=== PATIENT | male | born 1935 | race Caucasian/White ===

== ENCOUNTER 2020-02-29 05:35 | Outpatient (CLI) | payer MEDICARE ==
[~2020-02-29] VITALS: Ht 175.3 cm; Wt 63.2 kg
[2020-02-29 08:14] VITALS: BP 159/87
[2020-02-29 08:57] LABS: BASOPHILS # (AUTO) 0.1 10^3/uL (0.0-0.1); BASOPHILS % (AUTO) 1 % (0-10); EOSINOPHILS # (AUTO) 0.3 10^3/uL (0.0-0.3); EOSINOPHILS % (AUTO) 3 % (0-10); HEMATOCRIT 46 % (40-54); HEMOGLOBIN 15.1 G/DL (13.3-17.7); LYMPHOCYTES # (AUTO) 1.2 X 10^3 (1.0-4.0); LYMPHOCYTES % (AUTO) 11 % (12-44); MEAN CORPUSCULAR HEMOGLOBIN 30 PG (25-34); MEAN CORPUSCULAR HGB CONC 33 G/DL (32-36); MEAN CORPUSCULAR VOLUME 91 FL (80-99); MONOCYTES # (AUTO) 0.9 X 10^3 (0.0-1.0); MONOCYTES % (AUTO) 8 % (0-12); NEUTROPHILS # (AUTO) 8.2 X 10^3 (1.8-7.8); NEUTROPHILS % (AUTO) 77 % (42-75); PLATELET COUNT 335 10^3/uL (130-400); RED CELL DISTRIBUTION WIDTH 15.2 % (10.0-14.5); WHITE BLOOD COUNT 10.7 10^3/uL (4.3-11.0)
[2020-02-29 09:21] LABS: BUN/CREATININE RATIO 13; CALCIUM 9.3 MG/DL (8.5-10.1); CARBON DIOXIDE 22 MMOL/L (21-32); CHLORIDE 106 MMOL/L (98-107); CREATININE SERUM 0.93 MG/DL (0.60-1.30); GFR ESTIMATED > 60; GLUCOSE 91 MG/DL (70-105); POTASSIUM 4.3 MMOL/L (3.6-5.0); SODIUM 139 MMOL/L (135-145)
[2020-02-29] MEDS ORDERED: SIMV40TA25 PO (12:24)
[2020-02-29] MEDS ORDERED: CLOP75TA28 PO (12:24)
[2020-02-29] MEDS ORDERED: OMEG100032 PO (12:24)
[2020-02-29] MEDS ORDERED: MTP100TCR PO (12:24)
[2020-02-29] MEDS ORDERED: MOME13HF4 IH (12:24)
[2020-02-29] MEDS ORDERED: AMLO10TA7 PO (12:24)
[2020-02-29] MEDS ORDERED: IPRA4AER IH (12:24)
== END 2020-02-29 12:26 | disposition home or self-care (01) ==
LOC: PREOP 05:35
PROVIDERS: ATTEND Otolaryngology Otolaryngology/Facial Plastic Surgery
DX: Z01.812 Encounter for preprocedural laboratory examination (principal); Z01.810 Encounter for preprocedural cardiovascular examination; J32.8 Other chronic sinusitis; Z20.828 Contact with and (suspected) exposure to other viral communicable diseases
CPT/HCPCS: 80048; 85025; 87081; 93005; U0002; 36415; 87635

== ENCOUNTER 2020-03-02 07:02 | Day surgery (SDC) | payer MEDICARE ==
[2020-03-02] VITALS (11 sets, daily range): BP systolic 128–173; BP diastolic 60–104
[~2020-03-02] VITALS: Ht 175.3 cm; Wt 63.2 kg
[~2020-03-02 07:02] MED LIST: AMLO10TA7 PO; CLOP75TA28 PO; IPRA4AER IH; MOME13HF4 IH; MTP100TCR PO; OMEG100032 PO; SIMV40TA25 PO
[2020-03-02] MEDS ORDERED: LACTATED RINGERS 1,000 ML IV PRN (07:15)
[2020-03-02] MEDS ORDERED: ROCURONIUM 10 MG/ML 5 ML SYRINGE IV ONE (08:14)
[2020-03-02] MEDS ORDERED: ONDANSETRON 4 MG/2 ML (SDV) Z0FRAN ONE (08:14)
[2020-03-02] MEDS ORDERED: LIDOCAINE PF 2% 5 ML (XYLOCAINE) VIAL ONE (08:14)
[2020-03-02] MEDS ORDERED: proPOfol 200 MG/20 ML (DIPRIVAN) VIAL IV ONE (08:14)
[2020-03-02] MEDS ORDERED: MIDAZOLAM 2 MG/2 ML (VERSED) VIAL ONE (08:15)
[2020-03-02] MEDS ORDERED: fentaNYL INJECTION 100 MCG/2 ML AMP ONE (08:15)
[2020-03-02] MEDS ORDERED: NEOSTIGMINE 3 MG/3 ML VIAL ONE (08:16)
[2020-03-02] MEDS ORDERED: GLYCOPYRROLATE 0.2 MG/ML (ROBINUL) 2 ML VIAL ONE (08:16)
[2020-03-02] MEDS ORDERED: LIDOCAINE/EPI 1%-1:100,000 (XYLOCAINE) 20ML ONE (08:21)
[2020-03-02] MEDS ORDERED: LIDOCAINE/EPI 1%-1:100,000 (XYLOCAINE) 20ML INJ ONE (09:00)
[2020-03-02] MEDS ORDERED: SUCCINYLCHOLINE INJ 100 MG/5 ML SYR ONE (09:26)
[2020-03-02] MEDS ORDERED: SEVOFLURANE (ULTANE) 15 ML INHAL SOLN ONE (09:29)
[2020-03-02] MEDS ORDERED: PROMETHAZINE INJ 25 MG/ML (PHENERGAN) AMP IVP ONE (10:00)
[2020-03-02] MEDS ORDERED: morphine INJ 10 MG/ML 1ML (SYR OR VIAL) IVP ONE (10:00)
[2020-03-02] MEDS ORDERED: ONDANSETRON 4 MG/2 ML (SDV) Z0FRAN IVP PRN (10:00)
[2020-03-02] MEDS ORDERED: HYDR-3812 PO (11:27)
--- NOTE | 2020-03-02 11:33 | Anesthesia-General Post-Op ---
General Patient Condition Mental Status/LOC: Same as Preop Cardiovascular: Satisfactory Nausea/Vomiting: Absent Respiratory: Satisfactory Pain: Controlled Complications: Absent Post Op Complications Complications None Follow Up Care/Instructions Patient Instructions None needed. Anesthesia/Patient Condition Patient Condition Patient is doing well, no complaints, stable vital signs, no apparent adverse anesthesia problems. No complications reported per nursing. TYLER BLAKE CRNA Mar 02, 2020 11:33
== END 2020-03-02 11:52 | disposition home or self-care (01) ==
LOC: SDC 07:02
PROVIDERS: ATTEND Otolaryngology Otolaryngology/Facial Plastic Surgery
DX: C12 Malignant neoplasm of pyriform sinus (principal); J32.9 Chronic sinusitis, unspecified; I25.10 Atherosclerotic heart disease of native coronary artery without angina pectoris; J44.9 Chronic obstructive pulmonary disease, unspecified; Z79.899 Other long term (current) drug therapy

== ENCOUNTER → 2020-03-14 | Outpatient (CLI) | payer MEDICARE ==
[~2020-03-14] MED LIST changes: +HYDR-3812 PO
--- NOTE | 2020-03-16 11:16 | Diagnostic Imaging Report ---
PET/CT. 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 EXAMINATION: After intravenous administration of 14.68 mCi of F18-FDG injected into the right antecubital fossa, a series of overlapping emission and transmission PET images was obtained. In the coronal, transaxial and sagittal planes, the area imaged extended from the skull base through the upper thighs. FINDINGS: Height is 5' 9", weight is 140, and blood glucose level is 103. There are no prior PET/CT examinations available for comparison. The CT neck exam performed at [facility] on 02/11/2020 did show a 1.7 x 2.4 x 3.0 cm soft tissue mass in the left pyriform sinus. Reportedly, this mass was biopsied and a diagnosis of squamous cell carcinoma was established. On the CT images of this exam, that mass is again identified and does not appear to have changed significantly in size. This mass is intensely hypermetabolic with a maximum SUV of 14.3. However, there is no other hypermetabolic activity in the neck, supraclavicular region, or chest to suggest metastatic disease. The images through the abdomen do show that there is a 1.7 cm rounded area of increased hypermetabolic activity along the superior pole of the right kidney. This has a maximum SUV of 7.5. This could be related to radiotracer within the collecting system of the right kidney as there is no clear evidence for a mass in this area on the CT images. The possibility that there is a small occult neoplastic mass in this area should still be considered, however. I would recommend that a follow-up CT abdomen exam with and without contrast be performed for further evaluation. There is no other hypermetabolic activity to indicate the presence of malignancy. Physiologic activity is seen in the brain, the kidneys, the bowel, and the bladder. The CT images failed to show any sign of an acute abnormality. There are emphysematous changes involving both lungs and mild chronic fibrosis/atelectasis in each lung base. The prostate gland is enlarged measuring 5.4 cm (normal 5 cm or less). IMPRESSION: 1. The mass in the left pyriform sinus is intensely hypermetabolic, consistent with neoplastic disease. 2. The small area of increased activity in the superior pole of the right kidney is of uncertain etiology. Considerations and recommendations, as above. 3. There is no other hypermetabolic activity to suggest the presence of malignancy. 4. There is no evidence for an acute abnormality. 5. The prostate gland is enlarged. Dictated by: Dictated on workstation # [id number]
== END ==
LOC: RAD 09:58
PROVIDERS: ATTEND Otolaryngology Otolaryngology/Facial Plastic Surgery
DX: C12 Malignant neoplasm of pyriform sinus (principal); N40.0 Benign prostatic hyperplasia without lower urinary tract symptoms
CPT/HCPCS: 78815; A9552

== ENCOUNTER 2020-03-28 05:30 | Outpatient (RCR) | payer MEDICARE ==
[~2020-03-28] VITALS: Ht 175.3 cm; Wt 60.6 kg
[~2020-03-28 05:30] MED LIST changes: +ACHD5005 PO; -HYDR-3812 PO
== END 2020-03-28 09:24 | disposition home or self-care (01) ==
LOC: PREOP 05:30
PROVIDERS: ATTEND Surgery
DX: Z01.818 Encounter for other preprocedural examination (principal); Z01.812 Encounter for preprocedural laboratory examination; C12 Malignant neoplasm of pyriform sinus; Z20.828 Contact with and (suspected) exposure to other viral communicable diseases
CPT/HCPCS: 87635

== ENCOUNTER 2020-03-30 10:00 | Day surgery (SDC) | payer MEDICARE ==
[~2020-03-30] VITALS: Ht 175.3 cm; Wt 60.6 kg
[2020-03-30] VITALS (12 sets, daily range): BP systolic 144–178; BP diastolic 73–98
[2020-03-30] MEDS ORDERED: ceFAZolin 2 GM IV Premixed 50 ML IV ONE (10:15)
[2020-03-30] MEDS ORDERED: LIDOCAINE/EPI 2% 1:100,00 (XYLOCAINE) 20 ML VIAL ONE (10:21)
[2020-03-30] MEDS ORDERED: ROPIVACAINE 5MG/ML 30ML VIAL ONE (10:21)
[2020-03-30] MEDS ORDERED: HEParin (CENTRAL IV FLUSH) 500 UNIT/5 ML SYR ONE (10:22)
[2020-03-30] MEDS ORDERED: BUP/EPI 0.25% 1:200,000 (MARCAINE) 30 ML VIAL ONE (10:22)
[2020-03-30] MEDS ORDERED: 0.9% SODIUM CHLORIDE PF INJ 20 ML VIAL ONE (10:22)
[2020-03-30] MEDS: LACTATED RINGERS 1,000 ML IV PRN ×2 (10:38→14:56)
[2020-03-30] MEDS ORDERED: ROCURONIUM 10 MG/ML 5 ML SYRINGE IV ONE (11:34)
[2020-03-30] MEDS ORDERED: proPOfol 200 MG/20 ML (DIPRIVAN) VIAL IV ONE (11:34)
[2020-03-30] MEDS ORDERED: ONDANSETRON 4 MG/2 ML (SDV) Z0FRAN ONE (11:34)
[2020-03-30] MEDS ORDERED: MIDAZOLAM 2 MG/2 ML (VERSED) VIAL ONE (11:35)
[2020-03-30] MEDS ORDERED: fentaNYL INJECTION 100 MCG/2 ML AMP ONE (11:35)
[2020-03-30] MEDS ORDERED: SEVOFLURANE (ULTANE) 15 ML INHAL SOLN ONE ×9 (11:36→14:29)
[2020-03-30] MEDS ORDERED: GLYCOPYRROLATE 0.2 MG/ML (ROBINUL) 2 ML VIAL ONE ×2 (11:36→14:00)
[2020-03-30] MEDS ORDERED: NEOSTIGMINE 3 MG/3 ML VIAL ONE ×2 (11:36→14:00)
[2020-03-30] MEDS ORDERED: LIDOCAINE PF 2% 5 ML (XYLOCAINE) VIAL ONE (11:37)
--- NOTE | 2020-03-30 11:54 | Progress Note-Pre Operative ---
Pre-Operative Progress Note H&P Reviewed The H&P was reviewed, patient examined and no changes noted. Date Seen by Provider: Mar 30, 2020 Time Seen by Provider: 11:30 Date H&P Reviewed: Mar 30, 2020 Time H&P Reviewed: :30 Pre-Operative Diagnosis: oral pharygeal ca ROBBIE KNOWLES MD Mar 30, 2020 11:54
--- NOTE | 2020-03-30 11:56 | Discharge Inst-Surgical ---
D/C Lap Instructions-ELENI New, Converted, or Re-Newed RX: RX on Chart Follow Up PRN Activity as tolerated Regular Diet Symptoms to Report: Fever over 101 degree F, Nausea/Vomiting Infection Signs and Symptoms to report: Increased redness, Foul odor of wound, Increased drainage Bathing instructions: May shower Operative Area Clean/Dry; Keep incision clean/dry If any problems/questions: Contact your physician or go to Emergency Room ROBBIE KNOWLES MD Mar 30, 2020 11:56
[2020-03-30] MEDS ORDERED: morphine INJ 10 MG/ML 1ML (SYR OR VIAL) IVP PRN ×2 (12:00)
[2020-03-30] MEDS ORDERED: ONDANSETRON 4 MG/2 ML (SDV) Z0FRAN IVP PRN ×2 (12:00→15:00)
[2020-03-30] MEDS ORDERED: ACETAMINOPHEN 325 MG TABLET PO PRN (12:00)
[2020-03-30] MEDS ORDERED: HYDROcodone/APAP 5 MG/325 MG (LORTAB) TAB PO ONE (12:00)
[2020-03-30] MEDS ORDERED: LIDOCAINE JELLY 2% 6 ML SYRINGE ONE (12:22)
[2020-03-30] MEDS ORDERED: PHENYLEPHRINE 0.25% NASAL SPR (NEO-SYNEPHRINE) 15 ML NS ONE (12:39)
--- NOTE | 2020-03-30 13:36 | Progress Note-Post Operative ---
Post-Operative Progess Note Surgeon (s)/Dyed Yarn Operator (s) Surgeon ROBBIE KNOWLES MD Dyed Yarn Operator: hortensia piña [facility] Pre-Operative Diagnosis oral pharygeal ca Post-Operative Diagnosis same Procedure & Operative Findings Date of Procedure 03/30/20 Procedure Performed/Findings left sc groshong implantable catheter under flouroscopy. EGD with PEG Anesthesia Type get Estimated Blood Loss Estimated blood loss (mL): minimal Specimens/Packing Specimens Removed none ROBBIE KNOWLES MD Mar 30, 2020 13:36
--- NOTE | 2020-03-30 14:55 | Anesthesia-General Post-Op ---
General Patient Condition Mental Status/LOC: Same as Preop Cardiovascular: Satisfactory Nausea/Vomiting: Absent Respiratory: Satisfactory Pain: Controlled Complications: Absent Post Op Complications Complications None Follow Up Care/Instructions Patient Instructions None needed. Anesthesia/Patient Condition Patient Condition Patient is doing well, no complaints, stable vital signs, no apparent adverse anesthesia problems. No complications reported per nursing. RUPERT MOISE CRNA Mar 30, 2020 14:55
[2020-03-30] MEDS ORDERED: MEPERIDINE (DEMEROL) INJ 50 MG/ML IVP ONE (15:00)
[2020-03-30] MEDS ORDERED: morphine INJ 10 MG/ML 1ML (SYR OR VIAL) IVP ONE (15:00)
--- NOTE | 2020-03-30 15:09 | Diagnostic Imaging Report ---
INDICATION: Fluoroscopy for port insertion. FINDINGS: Fluoroscopy was provided in the OR during port insertion. 6 seconds of fluoroscopy time was utilized. A single image was obtained showing a port overlying the SVC. IMPRESSION: Fluoroscopy during port placement. Dictated by: Dictated on workstation # [id number]
--- NOTE | 2020-03-30 15:25 | Diagnostic Imaging Report ---
INDICATION: Left chest wall port placement. TIME OF EXAM: 3:04 p.m. COMPARISON: No prior study is available for comparison. FINDINGS: Left chest wall port has tip overlying the SVC. There is no pneumothorax. Lungs are clear. Heart size is normal. IMPRESSION: Port placement. No pneumothorax is identified. Dictated by: Dictated on workstation # [id number]
--- NOTE | 2020-03-30 17:20 | NUR ---
PT O2 SATS HAD BEEN RUNNING IN HIGH 80'S TO LOW 90'S. PT HAS WAD OF GAUZE IN HIS MOUTH TO HELP WITH DENTAL BLEEDING. PT IS A MOUTH BREATHER, O2 SATS UP TO 93-95 WHEN GAUZE OUT OF MOUTH.
[2020-03-30] MEDS ORDERED: CEPH-507 PO (18:25)
[2020-03-30] MEDS ORDERED: ACHD5005 PO (18:29)
--- NOTE | 2020-03-31 00:42 | OPERATIVE REPORT ---
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 PROCEDURES: Placement of left subclavian Groshong implantable catheter under fluoroscopy, EGD with percutaneous endoscopic gastrostomy tube placement. SURGEON: Robbie Ontiveros MD WEDDING COORDINATOR: Yoshi Barrientos APRN ANESTHESIA: General nasotracheal intubation. ESTIMATED BLOOD LOSS: Minimal. FINDINGS: Reflux esophagitis stage II, small hiatal hernia 1 cm in size, mild to moderate gastritis. No distal obstructions. DISPOSITION: The patient tolerated the procedure well. INDICATIONS: The patient is an 84-year-old male referred over to us for a Groshong implantable catheter as well as a percutaneous endoscopic gastrostomy tube. He reports that he developed hoarseness as well as a mild dysphagia and was referred to ENT where he underwent a nasopharyngoscopy and found to have a mass in the left piriform sinus, which was biopsied and consistent with a squamous cell cancer. Further testing with PET scan also did show ipsilateral lymph node. He will undergo radiation therapy and will need a Groshong implantable catheter as well as a percutaneous endoscopic gastrostomy tube placement for possible alimentation as well as for frequent IV access. DESCRIPTION OF PROCEDURE: The patient was brought to the operating room, laid supine on the table. After adequate IV pain medications and general nasotracheal intubation, the chest and neck were prepped and draped in standard surgical fashion. A 0.5% Marcaine with epinephrine was used to anesthetize the left subclavian region. Left subclavian vein was then cannulated withdrawing the venous blood. A guidewire was then inserted under fluoroscopy. The cannulating needle removed and a skin incision made using a 15 blade. The dilator and sheath were then introduced over the guidewire. The guidewire and the dilator were then removed and the Groshong implantable catheter was placed until the catheter tip was at the superior vena caval-right atrial junction. The inner wire within the catheter was then removed. The catheter cut down to size and a port placed onto the catheter. The chest reservoir was then created by extending the skin incision laterally using a 15 blade. A plane between the subcutaneous tissue and the anterior pectoralis fascia was then created using blunt dissection as well as electrocautery with visualization of good hemostasis. The port was then placed into the reservoir and sutured to the anterior pectoralis fascia using interrupted 3-0 Vicryl sutures. The subcutaneous tissue was then reapproximated using 3-0 Vicryl interrupted sutures and the skin was closed using 4-0 Monocryl running subcuticular suture. Wound was then cleaned and covered with Dermabond. The port was accessed with a Hi needle, withdrawing of venous blood and heparinized saline pushed in without any resistance. Under the same anesthesia, we then proceeded with the EGD and gastrostomy tube placement. The mouthpiece was applied and the endoscope was placed in the mouth, visualizing the pharynx and hypopharyngeal region. The endoscope was then gently intubated esophageal opening and esophagus insufflated. The endoscope was then advanced to the first, second and third portion of the esophagus at the level of the GE junction, a reflux esophagitis stage II identified. There were no ulcers or strictures identified in this region. A biopsy was taken with forceps with visualization of good hemostasis. The endoscope was then advanced into the stomach and endoscope retroflexed, visualizing a small hiatal hernia approximately 1 cm in size. There was a mild to moderate gastritis more towards the stomach antrum. No formal ulcerations, polyps, or any neoplasms. The endoscope was then advanced through the pylorus into the first and second portion of the duodenum, which appeared normal with no distal obstructions. The abdominal wall was then prepped and draped in standard surgical fashion. The abdominal wall was then anesthetized in the left upper abdominal quadrant using 1% lidocaine visualizing the needle coming through the anterior wall of the stomach. A vertical skin incision was then made using 11 blade and the trocar and sheath were then introduced under direct visualization through the endoscope. The guidewire was then placed through the sheath and snared through the endoscope and pulled out the mouth. The gastrostomy tube was then placed on to the wire and pulled through the abdominal wall layers until the end bolster was firmly opposing the anterior wall of the stomach. The antibacterial ointment was then placed on the exit site followed by drain sponges followed by the external rubber bolster. The gastrostomy tube was then cut down to size and the rubber stopper put on the end. The patient tolerated the procedure well. We will get a post-procedure chest x-ray and once confirmation of placement of the port and gastrostomy tube, may be accessed and used at any time. Job ID: [id number] DocumentID: [id number] Dictated Date: 03/30/2020 13:44:37 Machine Operator Picker Date: 03/31/2020 00:41:53 Dictated By: ROBBIE ONTIVEROS MD
== END 2020-03-30 17:40 | disposition home or self-care (01) ==
LOC: SDC 10:00
PROVIDERS: ATTEND Surgery
DX: C12 Malignant neoplasm of pyriform sinus (principal); I10 Essential (primary) hypertension; I25.10 Atherosclerotic heart disease of native coronary artery without angina pectoris; J44.9 Chronic obstructive pulmonary disease, unspecified; E78.00 Pure hypercholesterolemia, unspecified; C14.0 Malignant neoplasm of pharynx, unspecified; Z87.891 Personal history of nicotine dependence; Z95.5 Presence of coronary angioplasty implant and graft; Z80.3 Family history of malignant neoplasm of breast
CPT/HCPCS: 36561; 43246; 71045; 76000; 87081; C1788

== ENCOUNTER → 2020-06-13 | Outpatient (RCR) | payer MEDICARE ==
[2020-03-15 11:49] LABS: BASOPHILS # (AUTO) 0.1 10^3/uL (0.0-0.1); BASOPHILS % (AUTO) 1 % (0-10); EOSINOPHILS # (AUTO) 0.1 10^3/uL (0.0-0.3); EOSINOPHILS % (AUTO) 1 % (0-10); HEMATOCRIT 45 % (40-54); HEMOGLOBIN 14.7 G/DL (13.3-17.7); LYMPHOCYTES # (AUTO) 1.3 X 10^3 (1.0-4.0); LYMPHOCYTES % (AUTO) 9 % (12-44); MEAN CORPUSCULAR HEMOGLOBIN 30 PG (25-34); MEAN CORPUSCULAR HGB CONC 33 G/DL (32-36); MEAN CORPUSCULAR VOLUME 90 FL (80-99); MEAN PLATELET VOLUME 10.4 FL (7.4-10.4); MONOCYTES # (AUTO) 1.1 X 10^3 (0.0-1.0); MONOCYTES % (AUTO) 7 % (0-12); NEUTROPHILS # (AUTO) 12.2 X 10^3 (1.8-7.8); NEUTROPHILS % (AUTO) 82 % (42-75); PLATELET COUNT 353 10^3/uL (130-400); WHITE BLOOD COUNT 14.8 10^3/uL (4.3-11.0)
[2020-03-15 12:18] LABS: ALANINE AMINOTRANSFERASE 18 U/L (0-55); ALBUMIN 3.8 GM/DL (3.2-4.5); ALKALINE PHOSPHATASE 88 U/L (40-136); BILIRUBIN,TOTAL 0.6 MG/DL (0.1-1.0); BUN/CREATININE RATIO 17; CALCIUM 9.7 MG/DL (8.5-10.1); CARBON DIOXIDE 17 MMOL/L (21-32); CHLORIDE 104 MMOL/L (98-107); CREATININE SERUM 0.99 MG/DL (0.60-1.30); GFR ESTIMATED > 60; GLUCOSE 87 MG/DL (70-105); POTASSIUM 4.9 MMOL/L (3.6-5.0); SODIUM 137 MMOL/L (135-145); TOTAL PROTEIN 7.1 GM/DL (6.4-8.2)
[2020-04-10 14:40] LABS: BASOPHILS # (AUTO) 0.1 10^3/uL (0.0-0.1); BASOPHILS % (AUTO) 1 % (0-10); EOSINOPHILS # (AUTO) 0.2 10^3/uL (0.0-0.3); EOSINOPHILS % (AUTO) 1 % (0-10); HEMATOCRIT 44 % (40-54); HEMOGLOBIN 14.2 g/dL (13.3-17.7); LYMPHOCYTES % (AUTO) 12 % (12-44); MEAN CORPUSCULAR HEMOGLOBIN 30 pg (25-34); MEAN CORPUSCULAR HGB CONC 32 g/dL (32-36); MEAN CORPUSCULAR VOLUME 94 fL (80-99); MONOCYTES # (AUTO) 1.5 10^3/uL (0.0-1.0); MONOCYTES % (AUTO) 9 % (0-12); NEUTROPHILS # (AUTO) 12.8 10^3/uL (1.8-7.8); NEUTROPHILS % (AUTO) 76 % (42-75); PLATELET COUNT 413 10^3/uL (130-400); WHITE BLOOD COUNT 16.7 10^3/uL (4.3-11.0)
[2020-04-10 15:01] LABS: ALANINE AMINOTRANSFERASE 18 U/L (0-55); ALBUMIN 3.5 GM/DL (3.2-4.5); ALKALINE PHOSPHATASE 148 U/L (40-136); BILIRUBIN,TOTAL 0.7 MG/DL (0.1-1.0); BUN/CREATININE RATIO 13; CALCIUM 9.2 MG/DL (8.5-10.1); CARBON DIOXIDE 22 MMOL/L (21-32); CHLORIDE 103 MMOL/L (98-107); GFR ESTIMATED > 60; GLUCOSE 116 MG/DL (70-105); SODIUM 138 MMOL/L (135-145)
[2020-04-24 13:09] LABS: BASOPHILS # (AUTO) 0.1 10^3/uL (0.0-0.1); BASOPHILS % (AUTO) 1 % (0-10); EOSINOPHILS # (AUTO) 0.3 10^3/uL (0.0-0.3); EOSINOPHILS % (AUTO) 2 % (0-10); HEMATOCRIT 40 % (40-54); HEMOGLOBIN 13.2 g/dL (13.3-17.7); LYMPHOCYTES # (AUTO) 1.9 10^3/uL (1.0-4.0); LYMPHOCYTES % (AUTO) 13 % (12-44); MEAN CORPUSCULAR HEMOGLOBIN 31 pg (25-34); MEAN CORPUSCULAR HGB CONC 33 g/dL (32-36); MEAN CORPUSCULAR VOLUME 94 fL (80-99); MEAN PLATELET VOLUME 10.5 fL (9.0-12.2); MONOCYTES # (AUTO) 1.4 10^3/uL (0.0-1.0); MONOCYTES % (AUTO) 9 % (0-12); NEUTROPHILS # (AUTO) 11.3 10^3/uL (1.8-7.8); NEUTROPHILS % (AUTO) 76 % (42-75); PLATELET COUNT 460 10^3/uL (130-400); WHITE BLOOD COUNT 14.9 10^3/uL (4.3-11.0)
[2020-04-24 13:34] LABS: ALANINE AMINOTRANSFERASE 19 U/L (0-55); ALBUMIN 3.3 GM/DL (3.2-4.5); ALKALINE PHOSPHATASE 130 U/L (40-136); BILIRUBIN,TOTAL 0.5 MG/DL (0.1-1.0); BUN/CREATININE RATIO 13; CALCIUM 8.8 MG/DL (8.5-10.1); CARBON DIOXIDE 20 MMOL/L (21-32); CHLORIDE 106 MMOL/L (98-107); CREATININE SERUM 0.82 MG/DL (0.60-1.30); GFR ESTIMATED > 60; GLUCOSE 109 MG/DL (70-105); MAGNESIUM 1.8 MG/DL (1.6-2.4); POTASSIUM 4.1 MMOL/L (3.6-5.0); SODIUM 138 MMOL/L (135-145); TOTAL PROTEIN 6.6 GM/DL (6.4-8.2)
[2020-05-01 13:35] LABS: BASOPHILS # (AUTO) 0.1 10^3/uL (0.0-0.1); BASOPHILS % (AUTO) 0 % (0-10); EOSINOPHILS # (AUTO) 0.1 10^3/uL (0.0-0.3); EOSINOPHILS % (AUTO) 1 % (0-10); HEMATOCRIT 37 % (40-54); HEMOGLOBIN 12.4 g/dL (13.3-17.7); LYMPHOCYTES # (AUTO) 0.9 10^3/uL (1.0-4.0); LYMPHOCYTES % (AUTO) 5 % (12-44); MEAN CORPUSCULAR HEMOGLOBIN 31 pg (25-34); MEAN CORPUSCULAR HGB CONC 33 g/dL (32-36); MEAN CORPUSCULAR VOLUME 93 fL (80-99); MEAN PLATELET VOLUME 10.8 fL (9.0-12.2); MONOCYTES # (AUTO) 2.1 10^3/uL (0.0-1.0); MONOCYTES % (AUTO) 12 % (0-12); NEUTROPHILS # (AUTO) 14.9 10^3/uL (1.8-7.8); NEUTROPHILS % (AUTO) 81 % (42-75); PLATELET COUNT 418 10^3/uL (130-400); WHITE BLOOD COUNT 18.4 10^3/uL (4.3-11.0)
[2020-05-01 14:00] LABS: BUN/CREATININE RATIO 20; CALCIUM 8.9 MG/DL (8.5-10.1); CARBON DIOXIDE 24 MMOL/L (21-32); CHLORIDE 99 MMOL/L (98-107); CREATININE SERUM 0.84 MG/DL (0.60-1.30); GFR ESTIMATED > 60; GLUCOSE 119 MG/DL (70-105); MAGNESIUM 1.7 MG/DL (1.6-2.4); POTASSIUM 4.5 MMOL/L (3.6-5.0); SODIUM 136 MMOL/L (135-145)
[2020-05-08 13:22] LABS: BASOPHILS # (AUTO) 0.1 10^3/uL (0.0-0.1); BASOPHILS % (AUTO) 0 % (0-10); EOSINOPHILS # (AUTO) 0.3 10^3/uL (0.0-0.3); EOSINOPHILS % (AUTO) 2 % (0-10); HEMATOCRIT 36 % (40-54); HEMOGLOBIN 11.9 g/dL (13.3-17.7); LYMPHOCYTES # (AUTO) 0.9 10^3/uL (1.0-4.0); LYMPHOCYTES % (AUTO) 6 % (12-44); MEAN CORPUSCULAR HEMOGLOBIN 31 pg (25-34); MEAN CORPUSCULAR HGB CONC 33 g/dL (32-36); MEAN CORPUSCULAR VOLUME 95 fL (80-99); MEAN PLATELET VOLUME 10.4 fL (9.0-12.2); MONOCYTES # (AUTO) 1.4 10^3/uL (0.0-1.0); MONOCYTES % (AUTO) 10 % (0-12); NEUTROPHILS # (AUTO) 12.4 10^3/uL (1.8-7.8); NEUTROPHILS % (AUTO) 82 % (42-75); PLATELET COUNT 359 10^3/uL (130-400); WHITE BLOOD COUNT 15.2 10^3/uL (4.3-11.0)
[2020-05-08 13:42] LABS: ALANINE AMINOTRANSFERASE 49 U/L (0-55); ALBUMIN 3.3 GM/DL (3.2-4.5); ALKALINE PHOSPHATASE 126 U/L (40-136); BILIRUBIN,TOTAL 0.5 MG/DL (0.1-1.0); BUN/CREATININE RATIO 21; CARBON DIOXIDE 26 MMOL/L (21-32); CHLORIDE 100 MMOL/L (98-107); CREATININE SERUM 0.78 MG/DL (0.60-1.30); GFR ESTIMATED > 60; GLUCOSE 106 MG/DL (70-105); POTASSIUM 4.3 MMOL/L (3.6-5.0); SODIUM 135 MMOL/L (135-145); TOTAL PROTEIN 6.4 GM/DL (6.4-8.2)
[2020-05-15 13:24] LABS: BASOPHILS # (AUTO) 0.1 10^3/uL (0.0-0.1); BASOPHILS % (AUTO) 1 % (0-10); EOSINOPHILS # (AUTO) 0.2 10^3/uL (0.0-0.3); EOSINOPHILS % (AUTO) 3 % (0-10); HEMATOCRIT 34 % (40-54); HEMOGLOBIN 10.8 g/dL (13.3-17.7); LYMPHOCYTES # (AUTO) 0.5 10^3/uL (1.0-4.0); LYMPHOCYTES % (AUTO) 6 % (12-44); MEAN CORPUSCULAR HEMOGLOBIN 31 pg (25-34); MEAN CORPUSCULAR HGB CONC 32 g/dL (32-36); MEAN CORPUSCULAR VOLUME 97 fL (80-99); MEAN PLATELET VOLUME 10.4 fL (9.0-12.2); MONOCYTES # (AUTO) 1.5 10^3/uL (0.0-1.0); MONOCYTES % (AUTO) 15 % (0-12); NEUTROPHILS # (AUTO) 7.2 10^3/uL (1.8-7.8); NEUTROPHILS % (AUTO) 75 % (42-75); PLATELET COUNT 322 10^3/uL (130-400); WHITE BLOOD COUNT 9.6 10^3/uL (4.3-11.0)
[2020-05-15 13:44] LABS: BUN/CREATININE RATIO 26; CARBON DIOXIDE 28 MMOL/L (21-32); CHLORIDE 97 MMOL/L (98-107); CREATININE SERUM 0.74 MG/DL (0.60-1.30); GFR ESTIMATED > 60; GLUCOSE 99 MG/DL (70-105); MAGNESIUM 2.2 MG/DL (1.6-2.4); POTASSIUM 4.9 MMOL/L (3.6-5.0); SODIUM 134 MMOL/L (135-145)
[2020-05-22 13:19] LABS: BASOPHILS % (AUTO) 1 % (0-10); EOSINOPHILS # (AUTO) 0.4 10^3/uL (0.0-0.3); EOSINOPHILS % (AUTO) 5 % (0-10); HEMATOCRIT 34 % (40-54); LYMPHOCYTES # (AUTO) 0.7 10^3/uL (1.0-4.0); LYMPHOCYTES % (AUTO) 8 % (12-44); MEAN CORPUSCULAR HEMOGLOBIN 32 pg (25-34); MEAN CORPUSCULAR HGB CONC 33 g/dL (32-36); MEAN CORPUSCULAR VOLUME 97 fL (80-99); MEAN PLATELET VOLUME 10.2 fL (9.0-12.2); MONOCYTES % (AUTO) 12 % (0-12); NEUTROPHILS # (AUTO) 5.9 10^3/uL (1.8-7.8); NEUTROPHILS % (AUTO) 72 % (42-75); PLATELET COUNT 319 10^3/uL (130-400); WHITE BLOOD COUNT 8.2 10^3/uL (4.3-11.0)
[2020-05-22 13:27] LABS: ALBUMIN 3.2 GM/DL (3.2-4.5); CHLORIDE 102 MMOL/L (98-107); POTASSIUM 4.7 MMOL/L (3.6-5.0); SODIUM 136 MMOL/L (135-145)
[2020-05-22 13:28] LABS: CALCIUM 8.9 MG/DL (8.5-10.1)
[2020-05-22 13:29] LABS: GLUCOSE 97 MG/DL (70-105)
[2020-05-22 13:31] LABS: BILIRUBIN,TOTAL 0.3 MG/DL (0.1-1.0); CARBON DIOXIDE 25 MMOL/L (21-32)
[2020-05-22 13:33] LABS: ALKALINE PHOSPHATASE 106 U/L (40-136); CREATININE SERUM 0.71 MG/DL (0.60-1.30); GFR ESTIMATED > 60
[2020-05-22 13:34] LABS: BUN/CREATININE RATIO 21
[2020-05-22 13:36] LABS: ALANINE AMINOTRANSFERASE 33 U/L (0-55)
[2020-05-29 13:27] LABS: BASOPHILS # (AUTO) 0.1 10^3/uL (0.0-0.1); BASOPHILS % (AUTO) 1 % (0-10); EOSINOPHILS # (AUTO) 0.2 10^3/uL (0.0-0.3); EOSINOPHILS % (AUTO) 2 % (0-10); HEMATOCRIT 33 % (40-54); HEMOGLOBIN 10.9 g/dL (13.3-17.7); LYMPHOCYTES # (AUTO) 0.5 10^3/uL (1.0-4.0); LYMPHOCYTES % (AUTO) 6 % (12-44); MEAN CORPUSCULAR HEMOGLOBIN 33 pg (25-34); MEAN CORPUSCULAR HGB CONC 33 g/dL (32-36); MEAN CORPUSCULAR VOLUME 99 fL (80-99); MEAN PLATELET VOLUME 10.4 fL (9.0-12.2); MONOCYTES % (AUTO) 11 % (0-12); NEUTROPHILS # (AUTO) 6.7 10^3/uL (1.8-7.8); NEUTROPHILS % (AUTO) 79 % (42-75); PLATELET COUNT 300 10^3/uL (130-400); WHITE BLOOD COUNT 8.5 10^3/uL (4.3-11.0)
[2020-05-29 13:44] LABS: ALANINE AMINOTRANSFERASE 30 U/L (0-55); ALBUMIN 3.3 GM/DL (3.2-4.5); ALKALINE PHOSPHATASE 97 U/L (40-136); BILIRUBIN,TOTAL 0.3 MG/DL (0.1-1.0); BUN/CREATININE RATIO 20; CALCIUM 8.7 MG/DL (8.5-10.1); CARBON DIOXIDE 25 MMOL/L (21-32); CHLORIDE 102 MMOL/L (98-107); CREATININE SERUM 0.71 MG/DL (0.60-1.30); GFR ESTIMATED > 60; GLUCOSE 110 MG/DL (70-105); MAGNESIUM 1.7 MG/DL (1.6-2.4); POTASSIUM 4.3 MMOL/L (3.6-5.0); SODIUM 137 MMOL/L (135-145)
[2020-06-05 13:29] LABS: BASOPHILS % (AUTO) 1 % (0-10); EOSINOPHILS # (AUTO) 0.1 10^3/uL (0.0-0.3); EOSINOPHILS % (AUTO) 2 % (0-10); HEMATOCRIT 33 % (40-54); HEMOGLOBIN 10.5 g/dL (13.3-17.7); LYMPHOCYTES # (AUTO) 0.5 10^3/uL (1.0-4.0); LYMPHOCYTES % (AUTO) 8 % (12-44); MEAN CORPUSCULAR HEMOGLOBIN 33 pg (25-34); MEAN CORPUSCULAR HGB CONC 32 g/dL (32-36); MEAN CORPUSCULAR VOLUME 102 fL (80-99); MEAN PLATELET VOLUME 10.8 fL (9.0-12.2); MONOCYTES # (AUTO) 0.9 10^3/uL (0.0-1.0); MONOCYTES % (AUTO) 15 % (0-12); NEUTROPHILS # (AUTO) 4.8 10^3/uL (1.8-7.8); NEUTROPHILS % (AUTO) 74 % (42-75); PLATELET COUNT 200 10^3/uL (130-400); WHITE BLOOD COUNT 6.4 10^3/uL (4.3-11.0)
[2020-06-05 13:46] LABS: BUN/CREATININE RATIO 24; CALCIUM 8.9 MG/DL (8.5-10.1); CARBON DIOXIDE 26 MMOL/L (21-32); CHLORIDE 101 MMOL/L (98-107); CREATININE SERUM 0.68 MG/DL (0.60-1.30); GFR ESTIMATED > 60; GLUCOSE 94 MG/DL (70-105); MAGNESIUM 1.6 MG/DL (1.6-2.4); POTASSIUM 4.3 MMOL/L (3.6-5.0); SODIUM 138 MMOL/L (135-145)
[~2020-06-13] VITALS: Ht 175.3 cm; Wt 61.2 kg
[~2020-06-13] MED LIST changes: +AMLO-251 PO; -AMLO10TA7 PO; +CEPH-507 PO; +CISPLATIN IV SCH; +FOSAPREPITANT (CANCER CENTER) 150 MG in NS (IVPB) CANCER CENTER ONLY 150 ML IV SCH; +MANNITOL IV SCH; +NS IV 1000 ML (CANCER CTR) IV SCH; +[UNRECOGNIZED DRUG - OTHER] IV SCH
== END | disposition home or self-care (01) ==
LOC: ONC 03-15 10:21
PROVIDERS: ATTEND Internal Medicine Hematology & Oncology
DX: C76.0 Malignant neoplasm of head, face and neck (principal); C12 Malignant neoplasm of pyriform sinus; J38.00 Paralysis of vocal cords and larynx, unspecified; J44.9 Chronic obstructive pulmonary disease, unspecified; I10 Essential (primary) hypertension; E78.00 Pure hypercholesterolemia, unspecified
CPT/HCPCS: 80053; 85025; G0463 ×2; 36591; 77300; 77301; 77334; 77336; 77338; 77386; 77470; 80048; 83735; 96360; 96367; 96375; 96413; 99205; 99213; 99214

== ENCOUNTER 2020-06-14 13:02 | Outpatient (RCR) | payer MEDICARE ==
[~2020-06-14 13:02] MED LIST changes: -CISPLATIN IV SCH; -FOSAPREPITANT (CANCER CENTER) 150 MG in NS (IVPB) CANCER CENTER ONLY 150 ML IV SCH; -MANNITOL IV SCH; -NS IV 1000 ML (CANCER CTR) IV SCH; -[UNRECOGNIZED DRUG - OTHER] IV SCH
== END 2020-07-21 14:58 | disposition still patient (30) ==
LOC: ONC 13:02
PROVIDERS: ATTEND Internal Medicine Hematology & Oncology
DX: C12 Malignant neoplasm of pyriform sinus (principal); J38.00 Paralysis of vocal cords and larynx, unspecified; I25.10 Atherosclerotic heart disease of native coronary artery without angina pectoris; E78.2 Mixed hyperlipidemia; J43.9 Emphysema, unspecified; B37.9 Candidiasis, unspecified
CPT/HCPCS: 77336; 77386 ×3; G0463

== ENCOUNTER → 2020-08-10 | Outpatient (CLI) | payer MEDICARE ==
[~2020-08-10] MED LIST changes: +CATHETER FLUSH 10 ML SYR IV PRN; +HOLD METFORMIN - RECEIVED CONTRAST 20 ML VIAL IV SCH; +IOHEXOL 350 MG/ML 100 ML (OMNIPAQUE 350) VIAL IV ONE; +NS 100 ML (IVPB) BAG IV ONE
--- NOTE | 2020-08-10 12:34 | Diagnostic Imaging Report ---
Clinical indications: Patient with primary malignant neoplasm of the piriform sinus. Exam: Axial CT scan of the brain without and with 50 mL of Omnipaque 350 IV contrast IV contrast with coronal and sagittal reformatted images. Auto Exposure Controls were utilized during the CT exam to meet ALARA standards for radiation dose reduction. Comparison: None. Findings: There is no evidence of acute cerebral infarct, intracranial hemorrhage, or gross mass effect. The brain parenchymal volume appears appropriate for patient's age. There is normal patel-white matter distinction. There is no significant midline shift or herniation. The [place] vascular structures show no gross abnormality as visualized. There is no evidence of hydrocephalus. The basal cisterns are unremarkable. The skull, extracranial soft tissue, and orbits are unremarkable. The paranasal sinuses are unremarkable. Temporal bones show no significant abnormality. Impression: Unremarkable CT scan of the brain for age. There is no evidence of metastatic disease or abnormal IV contrast enhancement. Dictated by: Dictated on workstation # [id number]
--- NOTE | 2020-08-10 14:13 | Diagnostic Imaging Report ---
CLINICAL INDICATION: Patient with malignant neoplasm of the piriform sinus. EXAM: Axial CT scan of the neck and chest performed with 50 mL of Omnipaque 350 IV contrast. Sagittal and coronal reformatted images are created. All CT scans use one or more of the following dose optimizing techniques: automated exposure control, MA and/or KvP adjustment based on patient size and exam type or iterative reconstruction. COMPARISON: Chest x-ray dated 03/30/2020. Whole-body PET/CT scan dated 03/14/2020. FINDINGS: NECK CT: The previously seen left piriform sinus mass has resolved. There is no measurable mass seen on this exam. There is soft tissue thickening involving the supraglottic larynx and hypopharyngeal soft tissue. There is no fluid collection or fat stranding seen. There are secretions within the upper hypopharynx. The nasopharynx and oropharynx are unremarkable. Visualized portions of the lower cavity and tongue are unremarkable. Submandibular and sublingual areas are unremarkable. Slightly high density in the bilateral submandibular glands are noted. There is dense atherosclerotic disease involving the proximal left cervical ICA with areas concerning for severe stenosis. There is no neck lymphadenopathy. Limited visualization of the intracranial structures is unremarkable. Orbits and globes are unremarkable. There is minimal mucosal thickening involving both maxillary sinuses. Mastoid air cells are clear. There is mircvise-ud-mqmyie loss of disc space height at C5-C6 and C6-C7 levels with suggestion of diffuse disc bulge and small uncinate spurs. CT CHEST: Centrilobular emphysematous lung disease is seen. There is bronchial wall thickening noted involving the proximal bilateral pulmonary bronchi. There are patchy areas of consolidation and increased lung markings involving the posterior aspects of both lungs. There are no solid lung nodules seen. There is no mediastinal or hilar lymphadenopathy. There is no axillary lymphadenopathy. Thyroid gland is unremarkable as visualized. Partially visualized PEG tube is seen. There is no visible mass seen involving the kidneys. Visualized upper abdominal structures are grossly unremarkable. Bones show no significant abnormality. IMPRESSION: 1: There is interval resolution of previously seen left piriform sinus mass. There is no mass seen on this exam. 2: There is no cervical, mediastinal, or chest lymphadenopathy. 3: Emphysematous lung disease. There is mild bronchial wall thickening bilaterally which may be related to mild bronchitis. 4: There is atelectasis and/or scarring involving the posterior bilateral lung bases. 5: There is no mass involving the kidneys, as visualized. Dictated by: Dictated on workstation # [id number]
--- NOTE | 2020-08-10 14:40 | Diagnostic Imaging Report ---
INDICATION: Pyriform sinus malignancy. Patient was administered 26.2 mCi technetium 99 MDP intravenously and whole-body imaging was performed after 3 hour delay. No prior bone scans are available for comparison. There is normal uptake of activity by the axial and appendicular skeleton. There is uptake by both kidneys with excretion into the urinary bladder. No suspicious foci of tracer accumulation is seen to suggest osseous metastatic disease. IMPRESSION: No scintigraphic evidence of osseous metastatic disease. Dictated by: Dictated on workstation # [id number]
== END ==
LOC: CARD 11:20
PROVIDERS: ATTEND Nurse Practitioner Adult Health
DX: C12 Malignant neoplasm of pyriform sinus (principal); J43.9 Emphysema, unspecified
CPT/HCPCS: 70470; 70491; 71260; 78306; A9503

== ENCOUNTER 2020-10-30 13:22 | Outpatient (RCR) | payer MEDICARE ==
[2020-08-03 14:43] LABS: BASOPHILS # (AUTO) 0.1 10^3/uL (0.0-0.1); BASOPHILS % (AUTO) 1 % (0-10); EOSINOPHILS # (AUTO) 0.5 10^3/uL (0.0-0.3); EOSINOPHILS % (AUTO) 5 % (0-10); HEMATOCRIT 39 % (40-54); HEMOGLOBIN 12.4 g/dL (13.3-17.7); LYMPHOCYTES # (AUTO) 1.1 X 10^3 (1.0-4.0); LYMPHOCYTES % (AUTO) 9 % (12-44); MEAN CORPUSCULAR HEMOGLOBIN 33 pg (25-34); MEAN CORPUSCULAR HGB CONC 32 g/dL (32-36); MEAN CORPUSCULAR VOLUME 104 fL (80-99); MEAN PLATELET VOLUME 11.2 fL (9.0-12.2); MONOCYTES # (AUTO) 1.3 X 10^3 (0.0-1.0); MONOCYTES % (AUTO) 11 % (0-12); NEUTROPHILS % (AUTO) 75 % (42-75); PLATELET COUNT 289 10^3/uL (130-400); WHITE BLOOD COUNT 12.1 10^3/uL (4.3-11.0)
[2020-08-03 15:12] LABS: ALANINE AMINOTRANSFERASE 30 U/L (0-55); ALBUMIN 3.4 GM/DL (3.2-4.5); ALKALINE PHOSPHATASE 118 U/L (40-136); BILIRUBIN,TOTAL 0.3 MG/DL (0.1-1.0); BUN/CREATININE RATIO 31; CALCIUM 9.3 MG/DL (8.5-10.1); CARBON DIOXIDE 24 MMOL/L (21-32); CHLORIDE 105 MMOL/L (98-107); CREATININE SERUM 1.01 MG/DL (0.60-1.30); GFR ESTIMATED > 60; GLUCOSE 140 MG/DL (70-105); SODIUM 141 MMOL/L (135-145); TOTAL PROTEIN 6.8 GM/DL (6.4-8.2)
[2020-09-18 13:33] LABS: BASOPHILS # (AUTO) 0.1 10^3/uL (0.0-0.1); BASOPHILS % (AUTO) 1 % (0-10); EOSINOPHILS # (AUTO) 0.7 10^3/uL (0.0-0.3); EOSINOPHILS % (AUTO) 7 % (0-10); HEMATOCRIT 41 % (40-54); HEMOGLOBIN 13.1 g/dL (13.3-17.7); LYMPHOCYTES # (AUTO) 1.3 10^3/uL (1.0-4.0); LYMPHOCYTES % (AUTO) 15 % (12-44); MEAN CORPUSCULAR HEMOGLOBIN 31 pg (25-34); MEAN CORPUSCULAR HGB CONC 32 g/dL (32-36); MEAN CORPUSCULAR VOLUME 98 fL (80-99); MEAN PLATELET VOLUME 10.9 fL (9.0-12.2); MONOCYTES # (AUTO) 0.9 10^3/uL (0.0-1.0); MONOCYTES % (AUTO) 11 % (0-12); NEUTROPHILS % (AUTO) 66 % (42-75); PLATELET COUNT 265 10^3/uL (130-400)
[2020-09-18 13:52] LABS: ALANINE AMINOTRANSFERASE 33 U/L (0-55); ALBUMIN 3.5 GM/DL (3.2-4.5); ALKALINE PHOSPHATASE 128 U/L (40-136); BILIRUBIN,TOTAL 0.3 MG/DL (0.1-1.0); BUN/CREATININE RATIO 24; CALCIUM 9.1 MG/DL (8.5-10.1); CARBON DIOXIDE 25 MMOL/L (21-32); CHLORIDE 106 MMOL/L (98-107); CREATININE SERUM 0.96 MG/DL (0.60-1.30); GFR ESTIMATED > 60; GLUCOSE 90 MG/DL (70-105); POTASSIUM 4.5 MMOL/L (3.6-5.0); SODIUM 139 MMOL/L (135-145); TOTAL PROTEIN 6.7 GM/DL (6.4-8.2)
[~2020-10-30 13:22] MED LIST changes: -CATHETER FLUSH 10 ML SYR IV PRN; -HOLD METFORMIN - RECEIVED CONTRAST 20 ML VIAL IV SCH; -IOHEXOL 350 MG/ML 100 ML (OMNIPAQUE 350) VIAL IV ONE; -NS 100 ML (IVPB) BAG IV ONE
[2020-10-30 13:37] LABS: BASOPHILS # (AUTO) 0.1 10^3/uL (0.0-0.1); BASOPHILS % (AUTO) 1 % (0-10); EOSINOPHILS # (AUTO) 1.1 10^3/uL (0.0-0.3); EOSINOPHILS % (AUTO) 11 % (0-10); HEMATOCRIT 42 % (40-54); HEMOGLOBIN 13.4 g/dL (13.3-17.7); LYMPHOCYTES # (AUTO) 1.3 10^3/uL (1.0-4.0); LYMPHOCYTES % (AUTO) 14 % (12-44); MEAN CORPUSCULAR HEMOGLOBIN 31 pg (25-34); MEAN CORPUSCULAR HGB CONC 32 g/dL (32-36); MEAN CORPUSCULAR VOLUME 97 fL (80-99); MEAN PLATELET VOLUME 10.5 fL (9.0-12.2); MONOCYTES # (AUTO) 0.9 10^3/uL (0.0-1.0); MONOCYTES % (AUTO) 10 % (0-12); NEUTROPHILS # (AUTO) 6.1 10^3/uL (1.8-7.8); NEUTROPHILS % (AUTO) 64 % (42-75); PLATELET COUNT 341 10^3/uL (130-400); WHITE BLOOD COUNT 9.5 10^3/uL (4.3-11.0)
[2020-10-30] MEDS ORDERED: NS IV 1000 ML (CANCER CTR) 1,000 ML ONE (13:51)
[2020-10-30 13:56] LABS: ALANINE AMINOTRANSFERASE 31 U/L (0-55); ALBUMIN 3.5 GM/DL (3.2-4.5); ALKALINE PHOSPHATASE 131 U/L (40-136); BILIRUBIN,TOTAL 0.4 MG/DL (0.1-1.0); BUN/CREATININE RATIO 26; CARBON DIOXIDE 24 MMOL/L (21-32); CHLORIDE 103 MMOL/L (98-107); CREATININE SERUM 0.86 MG/DL (0.60-1.30); GFR ESTIMATED > 60; GLUCOSE 95 MG/DL (70-105); POTASSIUM 4.5 MMOL/L (3.6-5.0); SODIUM 138 MMOL/L (135-145); TOTAL PROTEIN 6.8 GM/DL (6.4-8.2)
== END 2020-11-01 | disposition home or self-care (01) ==
LOC: ONC 13:22
PROVIDERS: ATTEND Internal Medicine Hematology & Oncology
DX: C12 Malignant neoplasm of pyriform sinus (principal); C76.0 Malignant neoplasm of head, face and neck; J38.00 Paralysis of vocal cords and larynx, unspecified; J44.9 Chronic obstructive pulmonary disease, unspecified; I10 Essential (primary) hypertension; E78.00 Pure hypercholesterolemia, unspecified; B37.9 Candidiasis, unspecified; E78.2 Mixed hyperlipidemia; Z72.3 Lack of physical exercise
CPT/HCPCS: 80053; 85025; G0463; 36591; 84443; 96365; 96523; 99213; 99214

== ENCOUNTER → 2020-12-12 | Outpatient (CLI) | payer MEDICARE ==
--- NOTE | 2020-12-12 14:51 | Diagnostic Imaging Report ---
INDICATION: Left piriform sinus carcinoma with subsequent restaging, assess treatment response. Serum blood glucose level at the time of injection is 112 mg/dL. Patient was administered 14.4 mCi of F-18 FDG intravenously in the right antecubital location and PET imaging was performed from the top of the skull to mid thighs. Noncontrast CT was also performed for attenuation correction and anatomic correlation. Correlation is made with prior CT of the neck and chest from 08/10/2020 as well as prior PET CT study from 03/14/2020. There is symmetric activity throughout the brain. A previously noted hypermetabolic mass involving the left piriform sinus is again not visualized on today's exam. There is physiologic activity within the soft tissues of the neck. No hypermetabolic lymphadenopathy is detected. No mediastinal or hilar hypermetabolism is identified. There is an area of mass versus consolidation in the left lower lobe which appears to be new. This measures 2.7 cm in size. This does show some low level FDG avidity with SUV max of 4.6. There is also a small amount of pleural fluid on the left side. No other pulmonary parenchymal abnormalities are seen. There is physiologic activity throughout the gastrointestinal and genitourinary tracts of abdomen and pelvis. No other areas of suspicious hypermetabolism are identified. IMPRESSION: 1. Previously noted hypermetabolic left piriform sinus mass again is no longer visualized. No hypermetabolic foci in the soft tissues of the neck are identified. There is no hypermetabolic lymphadenopathy. 2. New area of parenchymal consolidation versus mass in the left lower lobe. This does show some low-level uptake. This could be infectious/inflammatory as there is a small adjacent left pleural effusion. Follow-up CT chest after course of therapy in 4-6 weeks is recommended to show stability or resolution. If this persists, tissue sampling may be indicated. Dictated by: Dictated on workstation # [id number]
== END ==
LOC: RAD 08:15
PROVIDERS: ATTEND Nurse Practitioner Adult Health
DX: C12 Malignant neoplasm of pyriform sinus (principal)
CPT/HCPCS: 78815; A9552

== ENCOUNTER → 2021-01-31 | Outpatient (CLI) | payer MEDICARE ==
[~2021-01-31] MED LIST changes: +CATHETER FLUSH 10 ML SYR IV PRN; +HOLD METFORMIN - RECEIVED CONTRAST 20 ML VIAL IV SCH; +IOHEXOL 350 MG/ML 100 ML (OMNIPAQUE 350) VIAL IV ONE; +NS 100 ML (IVPB) BAG IV ONE
--- NOTE | 2021-01-31 12:16 | Diagnostic Imaging Report ---
PROCEDURE: CT chest with contrast only. TECHNIQUE: Multiple contiguous axial images were obtained through the chest after administration of intravenous contrast. Auto Exposure Controls were utilized during the CT exam to meet ALARA standards for radiation dose reduction. INDICATION: History of head and neck cancer. Correlated with metabolic PET CT 12/12/[address] there was an ovoid soft tissue like density nodule in the posterior sulcal portion of the left lower lobe. This was hypermetabolic. There is some mild regional scarring and subsegmental atelectasis but no residual or recurrent soft tissue density mass at that level found. There are advanced features of centrilobular emphysema with some chronic bronchiectasis and thickening of the central airways. No new abnormality. No axillary. Hilar or mediastinal lymphadenopathy. No effusion or pneumothorax. There has been no adverse development. Previous small volume left pleural effusion has since resolved. No pneumothorax. IMPRESSION: Resolution of small left effusion. Resolution of previous hypermetabolic masslike density in the left lower lobe. There are emphysematous and chronic changes in the lungs present with no acute or neoplastic appearing findings at today's study. Not mentioned above upper abdomen showing cholelithiasis and severe atherosclerotic vascular disease. Dictated by: Dictated on workstation # [id number]
== END ==
LOC: RAD 11:45
PROVIDERS: ATTEND Internal Medicine Hematology & Oncology
DX: J43.9 Emphysema, unspecified (principal); Z85.841 Personal history of malignant neoplasm of brain; Z85.89 Personal history of malignant neoplasm of other organs and systems
CPT/HCPCS: 71260

== ENCOUNTER 2021-02-05 10:54 | Outpatient (RCR) | payer MEDICARE ==
[2020-12-18 14:39] LABS: BASOPHILS # (AUTO) 0.1 10^3/uL (0.0-0.1); BASOPHILS % (AUTO) 1 % (0-10); EOSINOPHILS # (AUTO) 0.2 10^3/uL (0.0-0.3); EOSINOPHILS % (AUTO) 2 % (0-10); HEMATOCRIT 42 % (40-54); HEMOGLOBIN 13.5 g/dL (13.3-17.7); LYMPHOCYTES # (AUTO) 1.3 10^3/uL (1.0-4.0); LYMPHOCYTES % (AUTO) 12 % (12-44); MEAN CORPUSCULAR HEMOGLOBIN 31 pg (25-34); MEAN CORPUSCULAR HGB CONC 33 g/dL (32-36); MEAN CORPUSCULAR VOLUME 96 fL (80-99); MONOCYTES # (AUTO) 0.9 10^3/uL (0.0-1.0); MONOCYTES % (AUTO) 8 % (0-12); NEUTROPHILS # (AUTO) 8.3 10^3/uL (1.8-7.8); NEUTROPHILS % (AUTO) 77 % (42-75); PLATELET COUNT 247 10^3/uL (130-400); WHITE BLOOD COUNT 10.9 10^3/uL (4.3-11.0)
[2020-12-18 14:58] LABS: ALANINE AMINOTRANSFERASE 18 U/L (0-55); ALBUMIN 3.8 GM/DL (3.2-4.5); ALKALINE PHOSPHATASE 101 U/L (40-136); BILIRUBIN,TOTAL 0.6 MG/DL (0.1-1.0); BUN/CREATININE RATIO 16; CALCIUM 9.6 MG/DL (8.5-10.1); CARBON DIOXIDE 25 MMOL/L (21-32); CHLORIDE 105 MMOL/L (98-107); CREATININE SERUM 1.01 MG/DL (0.60-1.30); GFR ESTIMATED > 60; GLUCOSE 95 MG/DL (70-105); POTASSIUM 4.5 MMOL/L (3.6-5.0); SODIUM 139 MMOL/L (135-145); TOTAL PROTEIN 6.9 GM/DL (6.4-8.2)
[2021-01-31 10:21] LABS: BASOPHILS # (AUTO) 0.1 10^3/uL (0.0-0.1); BASOPHILS % (AUTO) 1 % (0-10); EOSINOPHILS # (AUTO) 0.4 10^3/uL (0.0-0.3); EOSINOPHILS % (AUTO) 5 % (0-10); HEMATOCRIT 40 % (40-54); LYMPHOCYTES # (AUTO) 1.3 10^3/uL (1.0-4.0); LYMPHOCYTES % (AUTO) 19 % (12-44); MEAN CORPUSCULAR HEMOGLOBIN 31 pg (25-34); MEAN CORPUSCULAR HGB CONC 32 g/dL (32-36); MEAN CORPUSCULAR VOLUME 97 fL (80-99); MEAN PLATELET VOLUME 10.4 fL (9.0-12.2); MONOCYTES # (AUTO) 0.6 10^3/uL (0.0-1.0); MONOCYTES % (AUTO) 8 % (0-12); NEUTROPHILS # (AUTO) 4.7 10^3/uL (1.8-7.8); NEUTROPHILS % (AUTO) 67 % (42-75); PLATELET COUNT 223 10^3/uL (130-400); WHITE BLOOD COUNT 7.1 10^3/uL (4.3-11.0)
[2021-01-31 10:41] LABS: ALANINE AMINOTRANSFERASE 13 U/L (0-55); ALBUMIN 3.6 GM/DL (3.2-4.5); ALKALINE PHOSPHATASE 83 U/L (40-136); BILIRUBIN,TOTAL 0.6 MG/DL (0.1-1.0); BUN/CREATININE RATIO 17; CALCIUM 8.8 MG/DL (8.5-10.1); CARBON DIOXIDE 25 MMOL/L (21-32); CHLORIDE 108 MMOL/L (98-107); CREATININE SERUM 0.93 MG/DL (0.60-1.30); GFR ESTIMATED > 60; GLUCOSE 85 MG/DL (70-105); POTASSIUM 4.3 MMOL/L (3.6-5.0); SODIUM 140 MMOL/L (135-145); TOTAL PROTEIN 6.5 GM/DL (6.4-8.2)
[~2021-02-05 10:54] MED LIST changes: -CATHETER FLUSH 10 ML SYR IV PRN; -HOLD METFORMIN - RECEIVED CONTRAST 20 ML VIAL IV SCH; -IOHEXOL 350 MG/ML 100 ML (OMNIPAQUE 350) VIAL IV ONE; -NS 100 ML (IVPB) BAG IV ONE
== END 2021-02-28 | disposition home or self-care (01) ==
LOC: ONC 10:54
PROVIDERS: ATTEND Internal Medicine Hematology & Oncology
DX: C12 Malignant neoplasm of pyriform sinus (principal); J38.00 Paralysis of vocal cords and larynx, unspecified; I10 Essential (primary) hypertension; E78.2 Mixed hyperlipidemia; E86.0 Dehydration; J43.9 Emphysema, unspecified; J90 Pleural effusion, not elsewhere classified; Z92.3 Personal history of irradiation; Z92.21 Personal history of antineoplastic chemotherapy; Z79.899 Other long term (current) drug therapy
CPT/HCPCS: 80053; 85025; 96523; 99213

== ENCOUNTER → 2021-05-24 | Outpatient (CLI) | payer MEDICARE ==
[~2021-05-24] MED LIST changes: +CATHETER FLUSH 10 ML SYR IV PRN; +HOLD METFORMIN - RECEIVED CONTRAST 20 ML VIAL IV SCH; +IOHEXOL 350 MG/ML 100 ML (OMNIPAQUE 350) VIAL IV ONE; +NS 100 ML (IVPB) BAG IV ONE
--- NOTE | 2021-05-24 13:43 | Diagnostic Imaging Report ---
EXAMINATION: CT neck and chest with intravenous contrast. TECHNIQUE: Multiple contiguous axial images were obtained through the neck and chest after the uneventful administration of intravenous contrast. All CT scans use one or more of the following dose optimizing techniques: automated exposure control, MA and/or KvP adjustment based on patient size and exam type or iterative reconstruction. HISTORY: History of throat cancer. COMPARISON: 01/31/2021. 08/10/2020. 12/12/2020. FINDINGS: Neck CT: No evidence of recurrent or residual mass is seen within the left piriform sinus. No evidence of masslike enhancement. There is subtle asymmetric soft tissue thickening in the left hypopharynx relative to the right, likely representing posttreatment changes. The airway is widely patent. No prevertebral or retropharyngeal fluid collections are seen. The laryngeal structures are symmetric and unremarkable. The parotid, submandibular and thyroid gland are unremarkable. No pathologically enlarged cervical lymph nodes are evident. No focal inflammatory changes are demonstrated. No soft tissue mass or fluid collection demonstrated. A large burden of atherosclerotic plaque is seen in the bilateral carotid bulbs with approximately 50-69% stenosis in the proximal right ICA and high-grade stenosis of 80% or more in the proximal left ICA based on NASCET criteria. The visualized intracranial contents demonstrate no evidence of pathologic intracranial enhancement or intracranial mass effect. Visualized orbital contents are unremarkable. The visualized paranasal sinuses are clear. The mastoids and middle ears are clear. No acute osseous abnormality in the cervical spine. Chest CT: The heart size is within normal limits. No pericardial effusion is present. A left port is visualized with the tip in the low SVC. There is calcified aortic and coronary atherosclerotic plaque without aneurysm. There is no mediastinal, hilar, or axillary lymphadenopathy. Centrilobular emphysema is seen throughout the lungs, greatest in the apices. There is stable scarring and bronchiectasis in the lung bases. There is mild bronchial wall thickening present. No focal consolidations or suspicious pulmonary nodules. There is no pleural effusion or pneumothorax. The osseous structures demonstrate no acute abnormalities. Limited views of the upper abdominal structures demonstrate no acute abnormalities. Both adrenal glands are unremarkable. IMPRESSION: 1. No evidence of recurrent mass within the left piriform sinus. Stable posttreatment changes are present. No development of pathologically enlarged lymphadenopathy in the neck or chest. Recommend continued follow-up, as indicated. 2. Large burden of atherosclerotic plaque in the bilateral carotid bulbs appearing to cause hemodynamically significant stenosis. Recommend further evaluation with carotid ultrasound. 3. Centrilobular emphysema throughout the lungs with scarring and bronchiectasis in the lung bases. 4. Mild bronchial wall thickening, which can be seen with bronchitis/bronchiolitis. No focal consolidations. Dictated by: Dictated on workstation # [id number]
== END ==
LOC: RAD 10:15
PROVIDERS: ATTEND Internal Medicine Hematology & Oncology
DX: J43.2 Centrilobular emphysema (principal); J98.4 Other disorders of lung; J47.9 Bronchiectasis, uncomplicated; I65.23 Occlusion and stenosis of bilateral carotid arteries; Z85.818 Personal history of malignant neoplasm of other sites of lip, oral cavity, and pharynx
CPT/HCPCS: 70491; 71260

== ENCOUNTER 2021-05-31 13:41 | Outpatient (RCR) | payer MEDICARE ==
[2021-03-21 10:18] LABS: BASOPHILS # (AUTO) 0.1 10^3/uL (0.0-0.1); BASOPHILS % (AUTO) 1 % (0-10); EOSINOPHILS # (AUTO) 0.5 10^3/uL (0.0-0.3); EOSINOPHILS % (AUTO) 6 % (0-10); HEMATOCRIT 39 % (40-54); HEMOGLOBIN 12.4 g/dL (13.3-17.7); LYMPHOCYTES # (AUTO) 1.2 10^3/uL (1.0-4.0); LYMPHOCYTES % (AUTO) 15 % (12-44); MEAN CORPUSCULAR HEMOGLOBIN 31 pg (25-34); MEAN CORPUSCULAR HGB CONC 32 g/dL (32-36); MEAN CORPUSCULAR VOLUME 98 fL (80-99); MEAN PLATELET VOLUME 10.9 fL (9.0-12.2); MONOCYTES # (AUTO) 0.8 10^3/uL (0.0-1.0); MONOCYTES % (AUTO) 10 % (0-12); NEUTROPHILS # (AUTO) 5.4 10^3/uL (1.8-7.8); NEUTROPHILS % (AUTO) 68 % (42-75); PLATELET COUNT 199 10^3/uL (130-400)
[2021-03-21 10:36] LABS: ALBUMIN 3.7 GM/DL (3.2-4.5); BILIRUBIN,TOTAL 0.7 MG/DL (0.1-1.0); CALCIUM 9.6 MG/DL (8.5-10.1); CREATININE SERUM 0.93 MG/DL (0.60-1.30); POTASSIUM 4.4 MMOL/L (3.6-5.0); TOTAL PROTEIN 6.6 GM/DL (6.4-8.2)
[2021-05-24 09:18] LABS: BASOPHILS # (AUTO) 0.1 10^3/uL (0.0-0.1); BASOPHILS % (AUTO) 1 % (0-10); EOSINOPHILS # (AUTO) 0.4 10^3/uL (0.0-0.3); EOSINOPHILS % (AUTO) 6 % (0-10); HEMATOCRIT 42 % (40-54); HEMOGLOBIN 13.9 g/dL (13.3-17.7); LYMPHOCYTES # (AUTO) 1.3 10^3/uL (1.0-4.0); LYMPHOCYTES % (AUTO) 19 % (12-44); MEAN CORPUSCULAR HEMOGLOBIN 32 pg (25-34); MEAN CORPUSCULAR HGB CONC 33 g/dL (32-36); MEAN CORPUSCULAR VOLUME 95 fL (80-99); MEAN PLATELET VOLUME 10.4 fL (9.0-12.2); MONOCYTES # (AUTO) 0.6 10^3/uL (0.0-1.0); MONOCYTES % (AUTO) 8 % (0-12); NEUTROPHILS # (AUTO) 4.7 10^3/uL (1.8-7.8); NEUTROPHILS % (AUTO) 66 % (42-75); PLATELET COUNT 216 10^3/uL (130-400); WHITE BLOOD COUNT 7.1 10^3/uL (4.3-11.0)
[2021-05-24 09:33] LABS: ALBUMIN 3.9 GM/DL (3.2-4.5); BILIRUBIN,TOTAL 0.6 MG/DL (0.1-1.0); CALCIUM 9.2 MG/DL (8.5-10.1); CREATININE SERUM 0.96 MG/DL (0.60-1.30)
[~2021-05-31 13:41] MED LIST changes: -CATHETER FLUSH 10 ML SYR IV PRN; -HOLD METFORMIN - RECEIVED CONTRAST 20 ML VIAL IV SCH; -IOHEXOL 350 MG/ML 100 ML (OMNIPAQUE 350) VIAL IV ONE; -NS 100 ML (IVPB) BAG IV ONE
== END 2021-06-19 | disposition home or self-care (01) ==
LOC: ONC 13:41
PROVIDERS: ATTEND Internal Medicine Hematology & Oncology
DX: C12 Malignant neoplasm of pyriform sinus (principal); J38.00 Paralysis of vocal cords and larynx, unspecified; E78.2 Mixed hyperlipidemia; Z92.3 Personal history of irradiation; Z92.21 Personal history of antineoplastic chemotherapy; Z45.2 Encounter for adjustment and management of vascular access device
CPT/HCPCS: 80053; 85025; G0463; 36591; 96523; 99213

== ENCOUNTER → 2021-08-22 | Outpatient (CLI) | payer MEDICARE ==
[~2021-08-22] MED LIST changes: +HOLD METFORMIN - RECEIVED CONTRAST 20 ML VIAL IV SCH; +IOHEXOL 350 MG/ML 100 ML (OMNIPAQUE 350) VIAL IV ONE; +NS 100 ML (IVPB) BAG IV ONE
--- NOTE | 2021-08-22 15:38 | Diagnostic Imaging Report ---
CT neck/chest w INDICATION: Shortness of breath and cough. History of throat cancer. COMPARISON: CT neck and chest of 05/24/2021. TECHNIQUE: CT imaging of the neck and chest with IV contrast. Automatic exposure controls were utilized to keep dose as low as reasonably achievable. FINDINGS: NECK: The airway remains widely patent. There remains mild asymmetric soft tissue thickening in the region of left piriform sinus associated with the treated tumor. No new soft tissue masslike lesion within the pharynx or larynx. Epiglottis is normal in appearance. No cervical lymphadenopathy has developed. Thyroid is normal. 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 Paranasal sinuses are clear. No hydrocephalus or space-occupying mass within the visualized brain. No lytic or blastic skeletal lesions have developed. CHEST: Severe centrilobular emphysema is again noted. There are some retained secretions in the right mainstem bronchus. Stable peribronchial thickening and scattered small airways mucus plugging in the lung bases likely due to sequelae of chronic bronchitis. No pulmonary nodules have developed that would be suspicious for metastatic disease. No pleural effusion or pneumothorax. No axillary, mediastinal or hilar lymphadenopathy. The heart is normal in size without pericardial effusion. Normal caliber thoracic aorta with severe atherosclerotic plaquing. Visualized portions of upper abdomen have no features of metastatic disease. IMPRESSION: 1. 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 No features of local recurrence. 2. No metastatic disease in the neck or chest. Dictated by: Dictated on workstation # [id number]
== END ==
LOC: RAD 10:45
PROVIDERS: ATTEND Internal Medicine Hematology & Oncology
DX: C12 Malignant neoplasm of pyriform sinus (principal)
CPT/HCPCS: 70491; 71260

== ENCOUNTER 2021-08-29 09:21 | Outpatient (RCR) | payer MEDICARE ==
[2021-08-22 10:27] LABS: BASOPHILS # (AUTO) 0.1 10^3/uL (0.0-0.1); BASOPHILS % (AUTO) 1 % (0-10); EOSINOPHILS # (AUTO) 0.4 10^3/uL (0.0-0.3); EOSINOPHILS % (AUTO) 6 % (0-10); HEMATOCRIT 42 % (40-54); HEMOGLOBIN 13.6 g/dL (13.3-17.7); LYMPHOCYTES # (AUTO) 1.2 10^3/uL (1.0-4.0); LYMPHOCYTES % (AUTO) 15 % (12-44); MEAN CORPUSCULAR HEMOGLOBIN 30 pg (25-34); MEAN CORPUSCULAR HGB CONC 33 g/dL (32-36); MEAN CORPUSCULAR VOLUME 94 fL (80-99); MONOCYTES # (AUTO) 0.7 10^3/uL (0.0-1.0); MONOCYTES % (AUTO) 9 % (0-12); NEUTROPHILS # (AUTO) 5.5 10^3/uL (1.8-7.8); NEUTROPHILS % (AUTO) 69 % (42-75); PLATELET COUNT 239 10^3/uL (130-400)
[2021-08-22 10:52] LABS: ALBUMIN 3.6 GM/DL (3.2-4.5); BILIRUBIN,TOTAL 0.6 MG/DL (0.1-1.0); CREATININE SERUM 0.99 MG/DL (0.60-1.30); POTASSIUM 4.3 MMOL/L (3.6-5.0); TOTAL PROTEIN 6.8 GM/DL (6.4-8.2)
[~2021-08-29 09:21] MED LIST changes: -HOLD METFORMIN - RECEIVED CONTRAST 20 ML VIAL IV SCH; -IOHEXOL 350 MG/ML 100 ML (OMNIPAQUE 350) VIAL IV ONE; -NS 100 ML (IVPB) BAG IV ONE
== END 2021-09-10 | disposition home or self-care (01) ==
LOC: ONC 09:21
PROVIDERS: ATTEND Internal Medicine Hematology & Oncology
DX: Z45.2 Encounter for adjustment and management of vascular access device (principal); C12 Malignant neoplasm of pyriform sinus; J43.9 Emphysema, unspecified; I10 Essential (primary) hypertension; E78.5 Hyperlipidemia, unspecified; I25.10 Atherosclerotic heart disease of native coronary artery without angina pectoris
CPT/HCPCS: 36591; 80053; 84443; 85025; 99213

== ENCOUNTER 2021-11-29 10:19 | Outpatient (RCR) | payer MEDICARE | END 2021-12-11 | disposition home or self-care (01) | LOC: ONC 10:19 | PROVIDERS: ATTEND Internal Medicine Hematology & Oncology | DX: Z45.2 Encounter for adjustment and management of vascular access device (principal); C12 Malignant neoplasm of pyriform sinus; J43.9 Emphysema, unspecified; I10 Essential (primary) hypertension; E78.5 Hyperlipidemia, unspecified; I25.10 Atherosclerotic heart disease of native coronary artery without angina pectoris | CPT/HCPCS: 99213 ==

== ENCOUNTER 2021-12-26 09:38 | Outpatient (RCR) | payer MEDICARE ==
[2021-12-26 10:03] LABS: BASOPHILS % (AUTO) 1 % (0-10); EOSINOPHILS # (AUTO) 0.3 10^3/uL (0.0-0.3); EOSINOPHILS % (AUTO) 4 % (0-10); HEMATOCRIT 38 % (40-54); HEMOGLOBIN 12.5 g/dL (13.3-17.7); LYMPHOCYTES # (AUTO) 0.9 10^3/uL (1.0-4.0); LYMPHOCYTES % (AUTO) 11 % (12-44); MEAN CORPUSCULAR HEMOGLOBIN 30 pg (25-34); MEAN CORPUSCULAR HGB CONC 33 g/dL (32-36); MEAN CORPUSCULAR VOLUME 93 fL (80-99); MEAN PLATELET VOLUME 10.8 fL (9.0-12.2); MONOCYTES # (AUTO) 0.7 10^3/uL (0.0-1.0); MONOCYTES % (AUTO) 8 % (0-12); NEUTROPHILS # (AUTO) 6.4 10^3/uL (1.8-7.8); NEUTROPHILS % (AUTO) 76 % (42-75); PLATELET COUNT 209 10^3/uL (130-400); WHITE BLOOD COUNT 8.4 10^3/uL (4.3-11.0)
[2021-12-26 10:24] LABS: ALBUMIN 3.2 GM/DL (3.2-4.5); BILIRUBIN,TOTAL 0.6 MG/DL (0.1-1.0); CALCIUM 8.6 MG/DL (8.5-10.1); CREATININE SERUM 0.93 MG/DL (0.60-1.30); POTASSIUM 4.3 MMOL/L (3.6-5.0); TOTAL PROTEIN 6.1 GM/DL (6.4-8.2)
== END 2022-01-10 | disposition home or self-care (01) ==
LOC: ONC 09:38
PROVIDERS: ATTEND Internal Medicine Hematology & Oncology
DX: C12 Malignant neoplasm of pyriform sinus (principal); J43.9 Emphysema, unspecified; I10 Essential (primary) hypertension; I25.10 Atherosclerotic heart disease of native coronary artery without angina pectoris; C76.0 Malignant neoplasm of head, face and neck; E78.2 Mixed hyperlipidemia
CPT/HCPCS: 80053; 84443; 85025; G0463; 99213

== ENCOUNTER 2022-03-21 10:10 | Outpatient (RCR) | payer MEDICARE | END 2022-04-12 | disposition home or self-care (01) | LOC: ONC 10:10 | PROVIDERS: ATTEND Internal Medicine Hematology & Oncology | DX: Z45.2 Encounter for adjustment and management of vascular access device (principal); C12 Malignant neoplasm of pyriform sinus; C76.0 Malignant neoplasm of head, face and neck; J43.9 Emphysema, unspecified; I10 Essential (primary) hypertension; I25.10 Atherosclerotic heart disease of native coronary artery without angina pectoris; E78.2 Mixed hyperlipidemia | CPT/HCPCS: 96523 ==

== ENCOUNTER 2022-06-25 10:43 | Outpatient (RCR) | payer MEDICARE ==
[2022-06-25 11:10] LABS: BASOPHILS % (AUTO) 1 % (0-10); EOSINOPHILS # (AUTO) 0.3 10^3/uL (0.0-0.3); EOSINOPHILS % (AUTO) 4 % (0-10); HEMATOCRIT 41 % (40-54); HEMOGLOBIN 13.3 g/dL (13.3-17.7); LYMPHOCYTES # (AUTO) 1.2 10^3/uL (1.0-4.0); LYMPHOCYTES % (AUTO) 17 % (12-44); MEAN CORPUSCULAR HEMOGLOBIN 31 pg (25-34); MEAN CORPUSCULAR HGB CONC 33 g/dL (32-36); MEAN CORPUSCULAR VOLUME 95 fL (80-99); MEAN PLATELET VOLUME 10.9 fL (9.0-12.2); MONOCYTES # (AUTO) 0.7 10^3/uL (0.0-1.0); MONOCYTES % (AUTO) 10 % (0-12); NEUTROPHILS # (AUTO) 5.1 10^3/uL (1.8-7.8); NEUTROPHILS % (AUTO) 69 % (42-75); PLATELET COUNT 183 10^3/uL (130-400); WHITE BLOOD COUNT 7.4 10^3/uL (4.3-11.0)
[2022-06-25 11:23] LABS: ALBUMIN 3.9 GM/DL (3.2-4.5); BILIRUBIN,TOTAL 0.7 MG/DL (0.1-1.0); CALCIUM 9.1 MG/DL (8.5-10.1); CREATININE SERUM 0.99 MG/DL (0.60-1.30); POTASSIUM 4.2 MMOL/L (3.6-5.0)
== END 2022-07-13 | disposition home or self-care (01) ==
LOC: ONC 10:43
PROVIDERS: ATTEND Internal Medicine Hematology & Oncology
DX: Z45.2 Encounter for adjustment and management of vascular access device (principal); C12 Malignant neoplasm of pyriform sinus; C76.0 Malignant neoplasm of head, face and neck; J43.9 Emphysema, unspecified; I10 Essential (primary) hypertension; E78.2 Mixed hyperlipidemia
CPT/HCPCS: 80053; 84443; 85025; G0463; 36591

== ENCOUNTER 2022-10-01 09:55 | Outpatient (RCR) | payer MEDICARE ==
[~2022-10-01 09:55] MED LIST changes: -MOME13HF4 IH; +MOME13HF9 IH
[2022-10-01 10:10] LABS: BASOPHILS # (AUTO) 0.1 10^3/uL (0.0-0.1); BASOPHILS % (AUTO) 1 % (0-10); EOSINOPHILS # (AUTO) 0.4 10^3/uL (0.0-0.3); EOSINOPHILS % (AUTO) 6 % (0-10); HEMATOCRIT 41 % (40-54); HEMOGLOBIN 13.6 g/dL (13.3-17.7); LYMPHOCYTES # (AUTO) 1.4 10^3/uL (1.0-4.0); LYMPHOCYTES % (AUTO) 20 % (12-44); MEAN CORPUSCULAR HEMOGLOBIN 32 pg (25-34); MEAN CORPUSCULAR HGB CONC 34 g/dL (32-36); MEAN CORPUSCULAR VOLUME 94 fL (80-99); MEAN PLATELET VOLUME 10.8 fL (9.0-12.2); MONOCYTES # (AUTO) 0.6 10^3/uL (0.0-1.0); MONOCYTES % (AUTO) 9 % (0-12); NEUTROPHILS # (AUTO) 4.6 10^3/uL (1.8-7.8); NEUTROPHILS % (AUTO) 65 % (42-75); PLATELET COUNT 175 10^3/uL (130-400); WHITE BLOOD COUNT 7.1 10^3/uL (4.3-11.0)
[2022-10-01 10:45] LABS: ALBUMIN 3.9 GM/DL (3.2-4.5); BILIRUBIN,TOTAL 0.7 MG/DL (0.1-1.0); TOTAL PROTEIN 6.7 GM/DL (6.4-8.2)
== END 2022-10-11 | disposition home or self-care (01) ==
LOC: ONC 09:55
PROVIDERS: ATTEND Internal Medicine Hematology & Oncology
DX: C76.0 Malignant neoplasm of head, face and neck (principal); C12 Malignant neoplasm of pyriform sinus; J43.9 Emphysema, unspecified; I10 Essential (primary) hypertension; E78.2 Mixed hyperlipidemia
CPT/HCPCS: 80053; 83615; 84443; 85025

== ENCOUNTER 2022-10-15 09:54 | Outpatient (RCR) | payer MEDICARE | END 2022-11-10 | LOC: ONC 09:54 | PROVIDERS: ATTEND Internal Medicine Hematology & Oncology | DX: Z45.2 Encounter for adjustment and management of vascular access device (principal); C76.0 Malignant neoplasm of head, face and neck; I10 Essential (primary) hypertension; E78.2 Mixed hyperlipidemia ==

== ENCOUNTER 2022-11-21 09:52 | Outpatient (RCR) | payer MEDICARE | END 2022-12-11 | disposition home or self-care (01) | LOC: ONC 09:52 | PROVIDERS: ATTEND Internal Medicine Hematology & Oncology | DX: Z45.2 Encounter for adjustment and management of vascular access device (principal); C76.0 Malignant neoplasm of head, face and neck; I10 Essential (primary) hypertension; E78.2 Mixed hyperlipidemia | CPT/HCPCS: 99213 ==

== ENCOUNTER 2023-01-03 10:49 | Outpatient (RCR) | payer MEDICARE | END 2023-01-10 | disposition home or self-care (01) | LOC: ONC 10:49 | PROVIDERS: ATTEND Internal Medicine Hematology & Oncology | DX: Z45.2 Encounter for adjustment and management of vascular access device (principal); C76.0 Malignant neoplasm of head, face and neck; C12 Malignant neoplasm of pyriform sinus; I10 Essential (primary) hypertension; E78.2 Mixed hyperlipidemia; J43.8 Other emphysema | CPT/HCPCS: 96523 ==

== ENCOUNTER 2023-04-15 09:52 | Outpatient (RCR) | payer MEDICARE ==
[2023-04-15 10:44] LABS: BASOPHILS # (AUTO) 0.1 10^3/uL (0.0-0.1); BASOPHILS % (AUTO) 1 % (0-10); EOSINOPHILS # (AUTO) 0.2 10^3/uL (0.0-0.3); EOSINOPHILS % (AUTO) 2 % (0-10); HEMATOCRIT 43 % (40-54); HEMOGLOBIN 14.2 g/dL (13.3-17.7); LYMPHOCYTES # (AUTO) 0.9 10^3/uL (1.0-4.0); LYMPHOCYTES % (AUTO) 10 % (12-44); MEAN CORPUSCULAR HEMOGLOBIN 32 pg (25-34); MEAN CORPUSCULAR HGB CONC 33 g/dL (32-36); MEAN CORPUSCULAR VOLUME 96 fL (80-99); MEAN PLATELET VOLUME 10.5 fL (9.0-12.2); MONOCYTES # (AUTO) 0.5 10^3/uL (0.0-1.0); MONOCYTES % (AUTO) 6 % (0-12); NEUTROPHILS # (AUTO) 6.8 10^3/uL (1.8-7.8); NEUTROPHILS % (AUTO) 80 % (42-75); PLATELET COUNT 208 10^3/uL (130-400); WHITE BLOOD COUNT 8.4 10^3/uL (4.3-11.0)
[2023-04-15 11:10] LABS: ALBUMIN 4.4 GM/DL (3.2-4.5); BILIRUBIN,TOTAL 0.5 MG/DL (0.1-1.0); CALCIUM 9.3 MG/DL (8.5-10.1); CREATININE SERUM 0.93 MG/DL (0.60-1.30); POTASSIUM 4.3 MMOL/L (3.6-5.0); TOTAL PROTEIN 7.5 GM/DL (6.4-8.2)
== END 2023-05-13 | disposition home or self-care (01) ==
LOC: ONC 09:52
PROVIDERS: ATTEND Internal Medicine Hematology & Oncology
DX: C76.0 Malignant neoplasm of head, face and neck (principal); C12 Malignant neoplasm of pyriform sinus; I10 Essential (primary) hypertension; E78.2 Mixed hyperlipidemia; J43.8 Other emphysema
CPT/HCPCS: 80053; 83615; 84443; 85025; G0463; 36415; 99214